=== PATIENT | female | born 1985 | race Two or more races ===

== ENCOUNTER 2017-07-24 12:38 | Emergency (ER) | payer MEDICAID ==
[~2017-07-24] VITALS: Ht 172.7 cm; Wt 63.5 kg
--- NOTE | 2017-07-24 12:40 | NUR ---
SOB SINCE YESTERDAY AFTER MOVING BOXES, FANNY NOTED, VSS, RESP EVEN AND UNLABORED, PT WAS PUT ON MONITOR, WAITING FOR MD HERNANDEZ.
[2017-07-24] MEDS ORDERED: LORAZEPAM 1 MG TABLET ONE (13:10)
[2017-07-24] MEDS ORDERED: predniSONE 20 MG TABLET ONE (13:10)
[2017-07-24] MEDS ORDERED: ALBUTEROL FS 2.5 MG/3 ML VIAL.NEB ONE ×3 (13:16→14:20)
[2017-07-24] MEDS ORDERED: IPRATROPIUM NEB FS 0.5 MG/2.5 ML AMPUL.NEB ONE (13:16)
[2017-07-24] MEDS ORDERED: ALBUTEROL FS 2.5 MG/3 ML VIAL.NEB NEB ONE ×2 (13:30→14:00)
[2017-07-24] MEDS ORDERED: IPRATROPIUM NEB FS 0.5 MG/2.5 ML AMPUL.NEB NEB ONE (13:30)
[2017-07-24] MEDS ORDERED: predniSONE 20 MG TABLET PO ONE (13:30)
[2017-07-24] MEDS ORDERED: LORAZEPAM 1 MG TABLET PO ONE (13:30)
[2017-07-24] MEDS ORDERED: IV NS 0.9% 1,000 ML BAG IV ONE ×2 (15:00)
[2017-07-24 15:23] LABS: BASOPHILS # (AUTO) 0.1 /CMM (0.0-0.2); BASOPHILS % (AUTO) 0.8 % (0.0-2.0); EOSINOPHILS % (AUTO) 0.6 % (0.0-6.0); HEMATOCRIT 44 % (33-45); MEAN CORPUSCULAR HGB CONC 34 g/dl (31.0-36.0); MEAN CORPUSCULAR VOLUME 90 fL (82-100); MONOCYTES # (AUTO) 0.4 /CMM (0.1-1.30); MONOCYTES % (AUTO) 2.5 % (2.0-12.0); NEUTROPHILS # (AUTO) 12.5 /CMM (1.8-8.9); NEUTROPHILS % (AUTO) 89.1 % (43.0-81.0); PLATELET COUNT (AUTO) 277 /CMM (150-450); RDW COEFFICIENT OF VARIATION 12.7 (11.5-15.0); RED BLOOD CELL COUNT(AUTO) 4.91 MIL/uL (4.0-5.2); WHITE BLOOD COUNT (AUTO) 14.1 K/uL (4.3-11.0)
[2017-07-24 15:34] LABS: CALCIUM, SERUM 9.1 mg/dL (8.5-10.1); POTASSIUM 3.5 mmol/L (3.5-5.1)
[2017-07-24 15:38] LABS: INR 0.96 (0.85-1.15)
[2017-07-24] MEDS ORDERED: CT SWABBABLE VALVE TRANS SET 1 EA INFUS.SET MC ONE (15:52)
[2017-07-24] MEDS ORDERED: IOHEXOL-350 100 ML VIAL IV ONE (15:52)
[2017-07-24] MEDS ORDERED: IV NS 0.9% 500 ML IV ONE (15:52)
--- NOTE | 2017-07-24 16:15 | NUR ---
PT BACK FROM [facility]
[2017-07-24 17:48] VITALS: BP 126/82
--- NOTE | 2017-07-24 17:48 | NUR ---
Patient discharged to home in stable condition. Written and verbal after care instructions given. Patient verbalizes understanding of instruction.
--- NOTE | 2017-07-24 17:48 | NUR ---
IV removed. Catheter intact and site benign. Pressure and 4x4 applied to site. No bleeding noted.
== END 2017-07-24 17:52 | disposition home or self-care (01) ==
LOC: ER 12:38
DX: J20.9 Acute bronchitis, unspecified (principal); R00.0 Tachycardia, unspecified; E86.0 Dehydration; F12.90 Cannabis use, unspecified, uncomplicated; F41.9 Anxiety disorder, unspecified; F43.9 Reaction to severe stress, unspecified; D72.829 Elevated white blood cell count, unspecified; F68.8 Other specified disorders of adult personality and behavior; Z72.0 Tobacco use
CPT/HCPCS: 36415; 71045-TC; 80048-TC; 85025-TC; 85730-TC; A4606; J7030; J7040; Q9967; Z7610

== ENCOUNTER 2018-09-15 15:24 | Emergency (ER) | payer MEDICAID ==
[~2018-09-15] VITALS: Ht 172.7 cm; Wt 68.5 kg
--- NOTE | 2018-09-15 15:37 | NUR ---
PT BIB SELF C/O WORSENING DIZZINESS, NAUSEA AND VOMITING X 2 WEEKS, PT IS AAOX4, NOT IN RESPIRATORY DISTRESS, V/S STABLE, KEPT RESTED AND COMFORTABLE, WILL CONTINUE TO MONITOR.
[2018-09-15] MEDS ORDERED: ONDANSETRON HCL/PF 4 MG/2 ML VIAL IVP ONE (16:00)
[2018-09-15] MEDS ORDERED: IV NS 0.9% 1,000 ML BAG IV ONE (16:00)
--- NOTE | 2018-09-15 16:00 | NUR ---
URINE SPECIMEN COLLECTED AND SENT TO LAB.
--- NOTE | 2018-09-15 16:01 | NUR ---
SEEN AND EXAMINED BY DR. SEBASTIAN
--- NOTE | 2018-09-15 16:10 | NUR ---
IV LINE ESTABLISHED BLOOD DRAWNED AND SENT TO LAB.
[2018-09-15] MEDS ORDERED: ONDANSETRON HCL/PF 4 MG/2 ML VIAL ONE (16:14)
[2018-09-15 16:18] LABS: BASOPHILS % (AUTO) 0.5 % (0.0-2.0); EOSINOPHILS % (AUTO) 2.9 % (0.0-6.0); HEMATOCRIT 46 % (33-45); HEMOGLOBIN 15.9 g/dL (11.5-14.8); LYMPHOCYTES # (AUTO) 1.5 /CMM (0.8-4.8); MEAN CORPUSCULAR HGB CONC 34 g/dl (31.0-36.0); MEAN CORPUSCULAR VOLUME 95 fL (82-100); MONOCYTES # (AUTO) 0.7 /CMM (0.1-1.30); NEUTROPHILS # (AUTO) 4.3 /CMM (1.8-8.9); NEUTROPHILS % (AUTO) 63.6 % (43.0-81.0); PLATELET COUNT (AUTO) 214 /CMM (150-450); RED BLOOD CELL COUNT(AUTO) 4.87 MIL/uL (4.0-5.2); WHITE BLOOD COUNT (AUTO) 6.8 K/uL (4.3-11.0)
[2018-09-15 16:21] LABS: APPEARANCE,URINE Cloudy (CLEAR); BILIRUBIN,URINE SMALL (NEGATIVE); BLOOD, URINE Moderate Ery/uL (NEGATIVE); COLOR,URINE Yellow (YELLOW); KETONES,URINE 15 (NEGATIVE); LEUKOCYTE ESTERASE ,URINE Trace (NEGATIVE); NITRITE, URINE Negative (NEGATIVE); PROTEIN,URINE Negative (NEGATIVE); UGLUCOSE Negative (NEGATIVE); UROBILINOGEN,URINE 0.2 EU/dL (0.2)
--- NOTE | 2018-09-15 16:26 | NUR ---
TECH AT BEDSIDE FOR US.
[2018-09-15 16:33] LABS: ALBUMIN 3.6 g/dL (3.4-5.0); BILIRUBIN,DIRECT 0.1 mg/dL (0.0-0.2); BILIRUBIN,TOTAL 0.2 mg/dL (0.2-1.0); CALCIUM, SERUM 8.7 mg/dL (8.5-10.1); CREATININE 0.9 mg/dL (0.6-1.3); TOTAL PROTEIN, SERUM 7.1 g/dL (6.4-8.2)
[2018-09-15 16:36] LABS: BACTERIA,URINE Few /HPF (None Seen); SQUAMOUS EPITHELIAL CELL,UR Few /HPF (None Seen)
[2018-09-15 16:41] LABS: POTASSIUM 3.8 mmol/L (3.5-5.1)
[2018-09-15 19:05] VITALS: BP 111/66
--- NOTE | 2018-09-15 19:05 | NUR ---
IV removed. Catheter intact and site benign. Pressure and 4x4 applied to site. No bleeding noted. Patient discharged to home in stable condition. Written and verbal after care instructions given. Patient verbalizes understanding of instruction.
== END 2018-09-15 19:07 | disposition home or self-care (01) ==
LOC: ER 15:26
DX: O21.9 Vomiting of pregnancy, unspecified (principal); O26.51 Maternal hypotension syndrome, first trimester; O99.331 Smoking (tobacco) complicating pregnancy, first trimester; Z98.890 Other specified postprocedural states; Z3A.01 Less than 8 weeks gestation of pregnancy
CPT/HCPCS: 36415; 76705; 76805; 80048; 80076; 81001; 83690; 84702; 84703; 85025; 96361; 96374; 99284; 99406; J2405; J7030; 81000-TC